=== PATIENT | female | born 1935 | race Caucasian/White ===

== ENCOUNTER 2017-03-02 22:40 | Observation (INO) | payer MEDICARE, BC ==
[2017-03-02] MEDS: APAP/HYDROCODONE 325/5 TAB PO PRN (23:30)
[2017-03-02] MEDS ORDERED: ACETAMINOPHEN 500 MG 500 MG TAB PO PRN (23:33)
[2017-03-02] MEDS ORDERED: PREDNISONE 20 MG TAB PO SCH (23:45)
[2017-03-03] MEDS: ATORVASTATIN 10 MG TAB PO SCH ×2 (00:03→21:12)
[2017-03-03] MEDS: TRAMADOL HYDROCHLORIDE 50 MG TAB PO PRN ×2 (00:03→05:59)
[2017-03-03] MEDS: AMLODIPINE 5 MG TAB PO SCH ×2 (00:03→21:11)
[2017-03-03] MEDS: APAP/HYDROCODONE 325/5 TAB PO PRN ×4 (03:36→21:11)
[2017-03-03 07:15] LABS: CALCIUM 8.3 mg/dl (8.5-10.1)
[2017-03-03 07:19] LABS: POTASSIUM 4.3 mMol/L (3.5-5.1)
[2017-03-03 07:26] LABS: BASOPHILS % (AUTO) 1 % (0-3); EOSINOPHILS % (AUTO) 0 % (0-9); HEMATOCRIT 35 % (35-47); MEAN CORPUSCULAR HGB CONC 34.5 gm/dl (32.0-36.0); MEAN CORPUSCULAR VOLUME 92 fL (81-99); MONOCYTES % (AUTO) 2.4 % (0-12); NEUTROPHILS % (AUTO) 89.2 % (37-80)
[2017-03-03] MEDS ORDERED: RANITIDINE HCL 150 MG TAB PO SCH (09:00)
[2017-03-03] MEDS: METOPROLOL SUCCINATE 50 MG ER TAB PO SCH (09:12)
[2017-03-03] MEDS: PREDNISONE 20 MG TAB PO SCH (09:12)
[2017-03-03] MEDS: BUDESONIDE/FORMOTEROL 80/4.5 1 PUFF AER IH SCH ×2 (09:12→21:11)
[2017-03-03] MEDS: FAMOTIDINE 20 MG TAB PO SCH ×2 (09:13→21:12)
[2017-03-03] MEDS ORDERED: RIVAROXABAN 20 MG TAB PO SCH (18:00)
[2017-03-03] MEDS ORDERED: FLUTICASONE PROPIONATE SPR NAS PRN (18:51)
[2017-03-04] MEDS: APAP/HYDROCODONE 325/5 TAB PO PRN ×2 (02:54→10:54)
[2017-03-04] MEDS: METOPROLOL SUCCINATE 50 MG ER TAB PO SCH (08:28)
[2017-03-04] MEDS: BUDESONIDE/FORMOTEROL 80/4.5 1 PUFF AER IH SCH (08:28)
[2017-03-04] MEDS: PREDNISONE 20 MG TAB PO SCH (08:28)
[2017-03-04] MEDS: FAMOTIDINE 20 MG TAB PO SCH (08:30)
[2017-03-04] MEDS ORDERED: FUROSEMIDE 40 MG TAB PO SCH (09:00)
[2017-03-04 09:21] VITALS: BP 161/78; PULSE 65; RESP 16; TEMP 98; O2SAT 98
== END 2017-03-04 12:55 | disposition home or self-care (01) | DRG 556 ==
LOC: ED 22:40 → ACUTE CARE 23:19
PROVIDERS: ADMIT Family Medicine; ATTEND Family Medicine
DX: M25.561 Pain in right knee (principal); I48.2 Chronic atrial fibrillation; Z79.01 Long term (current) use of anticoagulants
CPT/HCPCS: 36415; 73560; 80048; 85025; 99218; 99282

== ENCOUNTER 2017-04-18 11:28 | Outpatient (CLI) | payer MEDICARE, BC ==
[2017-03-04 09:21] VITALS: O2SAT 98
== END 2017-04-18 11:29 | disposition home or self-care (01) | DRG 556 ==
LOC: CONVCARE 11:28
PROVIDERS: ATTEND Orthopaedic Surgery
DX: M25.561 Pain in right knee (principal)
CPT/HCPCS: 87070; 87075; 87205; 89051

== ENCOUNTER 2017-06-13 13:47 | Outpatient (CLI) | payer MEDICARE, BC ==
[2017-03-04 09:21] VITALS: O2SAT 98
== END 2017-06-13 13:48 | disposition home or self-care (01) | DRG 554 ==
LOC: CONVCARE 13:47
PROVIDERS: ATTEND Orthopaedic Surgery
DX: M17.11 Unilateral primary osteoarthritis, right knee (principal); M19.012 Primary osteoarthritis, left shoulder
CPT/HCPCS: 73030; 73560

== ENCOUNTER 2018-02-08 12:52 | Day surgery (SDC) | payer MEDICARE, BC ==
[2018-02-08] MEDS ORDERED: DIAZEPAM 5 MG TAB ONE (13:06)
[2018-02-08 13:18] VITALS: RESP 18; TEMP 97.2
[2018-02-08] MEDS ORDERED: BUPIVACAINE HCL 0.25% MPF 30 ML SOL INFIL ONE (13:34)
[2018-02-08 14:41] VITALS: PULSE 78; O2SAT 98
[2018-02-08 15:03] VITALS: BP 113/112
== END 2018-02-08 15:01 | disposition home or self-care (01) | DRG 556 ==
LOC: SURG 12:52
PROVIDERS: ATTEND Nurse Anesthetist, Certified Registered
DX: M25.561 Pain in right knee (principal)
CPT/HCPCS: A9270-GY

== ENCOUNTER 2018-02-13 12:24 | Outpatient (CLI) | payer MEDICARE, BC ==
[2017-03-04 09:21] VITALS: O2SAT 98
== END 2018-02-13 12:25 | disposition home or self-care (01) | DRG 554 ==
LOC: CONVCARE 12:24
PROVIDERS: ATTEND Orthopaedic Surgery
DX: M12.812 Other specific arthropathies, not elsewhere classified, left shoulder (principal); M12.811 Other specific arthropathies, not elsewhere classified, right shoulder; M17.11 Unilateral primary osteoarthritis, right knee
CPT/HCPCS: 73030; 73560

== ENCOUNTER 2018-03-21 12:18 | Day surgery (SDC) | payer MEDICARE, BC ==
[2018-03-21] MEDS ORDERED: TRIAMCINOLONE ACETONIDE 40 MG/ML SUS ONE (13:05)
[2018-03-21] MEDS ORDERED: BUPIVACAINE HCL 0.5% MPF 10 ML SOL ONE (13:05)
[2018-03-21] MEDS ORDERED: LIDOCAINE HCL 1% MPF 30 SOL ONE (13:05)
[2018-03-21] MEDS: MIDAZOLAM 2 MG/2 ML SOL ONE ×2 (13:15→13:39)
[2018-03-21] MEDS: FENTANYL 100MCG/2ML SOL ONE ×2 (13:15→13:31)
[2018-03-21] MEDS ORDERED: SODIUM CHLORIDE 0.9% FLUSH 10 ML SOL IV ONE ×3 (13:15→13:39)
[2018-03-21 13:22] VITALS: RESP 16
[2018-03-21 14:01] VITALS: BP 156/61; PULSE 82; TEMP 98; O2SAT 94
== END 2018-03-21 14:40 | disposition home or self-care (01) | DRG 556 ==
LOC: SURG 12:18
PROVIDERS: ATTEND Nurse Anesthetist, Certified Registered
DX: M25.561 Pain in right knee (principal)
CPT/HCPCS: J2250; J3010; J2001; J3300

== ENCOUNTER 2018-11-11 13:17 | Emergency (ER) | payer MEDICARE, BC ==
[2018-11-11] MEDS ORDERED: CEFAZOLIN (PREMIX) 1 GM 1 GM/50 ML SOL IV ONE (13:38)
[2018-11-11 14:04] LABS: BASOPHILS % (AUTO) 1 % (0-3); EOSINOPHILS % (AUTO) 1 % (0-9); HEMATOCRIT 36 % (35-47); HEMOGLOBIN 11.7 gm/dl (12.0-15.5); LYMPHOCYTES % (AUTO) 13.8 % (10-50); MEAN CORPUSCULAR HEMOGLOBIN 30.5 pg (27.0-32.0); MEAN CORPUSCULAR HGB CONC 32.2 gm/dl (32.0-36.0); MEAN CORPUSCULAR VOLUME 95 fL (81-99); MONOCYTES % (AUTO) 10.8 % (0-12); NEUTROPHILS % (AUTO) 73.3 % (37-80)
[2018-11-11 14:11] LABS: CALCIUM 8.7 mg/dl (8.5-10.1); CARBON DIOXIDE 30.9 mEq/L (21-32); CREATININE 1.07 mg/dl (0.60-1.00); POTASSIUM 3.2 mMol/L (3.5-5.1)
[2018-11-11] MEDS ORDERED: SODIUM CHLORIDE 0.9% FLUSH 10 ML SOL IV PRN (14:19)
[2018-11-11] MEDS ORDERED: CEFAZOLIN SODIUM 1 GM PDS ONE (14:37)
[2018-11-11] MEDS ORDERED: PDS IV ONE (14:42)
[2018-11-11] MEDS ORDERED: SODIUM CHLORIDE 0.9% IV ONE (14:42)
[2018-11-11] MEDS ORDERED: CEFAZOLIN SODIUM IV ONE (14:42)
[2018-11-11] MEDS ORDERED: POTASSIUM CHLORIDE 10 MEQ TER PO ONE (14:48)
[2018-11-11] MEDS ORDERED: POTASSIUM CHLORIDE 10 MEQ TER ONE (14:54)
[2018-11-11] MEDS ORDERED: SODIUM CHLORIDE 0.9% 1000ML 1,500 ML IV SCH (15:00)
[2018-11-11 15:08] VITALS: TEMP 96.5
[2018-11-11 22:53] VITALS: BP 159/73; PULSE 71; RESP 16; O2SAT 97
== END 2018-11-11 17:25 | disposition home or self-care (01) | DRG 603 ==
LOC: ED 13:17
DX: L03.115 Cellulitis of right lower limb (principal); L97.819 Non-pressure chronic ulcer of other part of right lower leg with unspecified severity
CPT/HCPCS: 36415; 80048; 85025; 87070; 96365; 99283; 99285; J0690; A6232; A9270-GY

== ENCOUNTER 2018-11-14 12:48 | Emergency (ER) | payer MEDICARE, BC ==
[2018-11-14] MEDS ORDERED: HYDRALAZINE HYDROCHLORIDE 20 MG/ML SOL IV ONE (13:03)
[2018-11-14] MEDS ORDERED: HYDRALAZINE HYDROCHLORIDE 20 MG/ML SOL ONE (13:22)
[2018-11-14 13:42] VITALS: PULSE 88; RESP 20
[2018-11-14 13:48] VITALS: TEMP 98.1; O2SAT 100
[2018-11-14 14:11] LABS: CALCIUM 8.9 mg/dl (8.5-10.1); CARBON DIOXIDE 26.3 mEq/L (21-32); CREATININE 0.95 mg/dl (0.60-1.00); POTASSIUM 3.8 mMol/L (3.5-5.1)
[2018-11-14 15:19] VITALS: BP 168/71
== END 2018-11-14 14:50 | disposition home or self-care (01) | DRG 305 ==
LOC: ED 12:48
DX: I10 Essential (primary) hypertension (principal); L03.115 Cellulitis of right lower limb
CPT/HCPCS: 80048; 96374; 99282; 99283; J0360; A6232

== ENCOUNTER 2019-02-26 13:12 | Outpatient (CLI) | payer MEDICARE, BC ==
[2019-02-19 15:10] VITALS: O2SAT 95
== END 2019-02-26 13:13 | disposition home or self-care (01) | DRG 594 ==
LOC: CONVCARE 13:12
PROVIDERS: ATTEND Orthopaedic Surgery
DX: L97.811 Non-pressure chronic ulcer of other part of right lower leg limited to breakdown of skin (principal); M75.102 Unspecified rotator cuff tear or rupture of left shoulder, not specified as traumatic; M75.101 Unspecified rotator cuff tear or rupture of right shoulder, not specified as traumatic
CPT/HCPCS: 73030; 99212